=== PATIENT | male | born 1940 | race Caucasian/White ===

== ENCOUNTER 2016-11-10 07:23 | Day surgery (SDC) | payer MEDICARE, BC ==
[2016-11-07 10:16] LABS: HEMATOCRIT 40.9 % (40.0-51.0)
[2016-11-07 10:25] LABS: BUN (BLOOD UREA NITROGEN) 22 MG/DL (6-23); CALCIUM, SERUM 9.6 MG/DL (8.5-10.4); CHLORIDE, SERUM 106 MMOL/L (96-112); CREATININE 1.29 MG/DL (0.70-1.30); GFR AFRICAN AMERICAN 62 ML/MIN (>=60); GFR NON AFRICAN AMERICAN 54 ML/MIN (>=60); SODIUM, SERUM 143 MMOL/L (135-148)
[2016-11-07 10:26] LABS: CO2 (CARBON DIOXIDE) 30 MMOL/L (24-34); GLUCOSE, SERUM 115 MG/DL (60-99); POTASSIUM, SERUM 4.9 MMOL/L (3.5-5.3)
[2016-11-07 10:41] LABS: ASCORBIC ACID (UR NOT ORDER) 20 (NEG); BILIRUBIN, URINE NEGATIVE (NEG); KETONE, URINE NEGATIVE (NEG); LEUKOCYTE ESTERASE(NOT OR NEG (NEG); WBC (NOT ORDERED) (RFLEX) < 1 (0-5)
[~2016-11-10 07:23] MED LIST: ASAB PO; ATEN50 PO; CELEXA40 MG PO; COZAAR100 MG PO; FOLIC PO; HYDROCHLOROT25 MG PO; KLOR-CON M2020 MEQ PO; PLAVIX PO; RANITIDINE300 MG PO; VITAMIN B-122500 MCG SL; VITAMIN D31000 UNIT PO; X25 PO; ZOCOR40 PO
== END 2016-11-10 23:59 | disposition home or self-care (01) ==
LOC: SDC 07:23
PROVIDERS: Urology
DX: N40.1 Benign prostatic hyperplasia with lower urinary tract symptoms (principal); Z53.09 Procedure and treatment not carried out because of other contraindication
CPT/HCPCS: 36415; 80048; 81001; 85014; 85018; 86850; 86900; 86901; 93005; J0690